=== PATIENT | female | born 1955 | race Caucasian/White ===

== ENCOUNTER 2020-09-14 05:44 | Day surgery (SDC) | payer OTHER ==
[2020-09-13 16:54] VITALS: BMI 26.5
[2020-09-14] MEDS ORDERED: LIDOCAINE HCL/PF 2% SDV 5ML VIAL ONE (07:43)
[2020-09-14] MEDS ORDERED: PROPOFOL 20 ML ONE ×3 (07:43)
[2020-09-14] MEDS ORDERED: MIDAZOLAM HCL 2 MG/2 ML SINGLE DOSE VIAL ONE (07:43)
[2020-09-14] MEDS ORDERED: SUCCINYLCHOLINE CHLORIDE 200 MG/10 ML SYRINGE ONE (07:43)
[2020-09-14] MEDS ORDERED: ceFAZolin SODIUM 1 GM VIAL ONE (07:43)
[2020-09-14] MEDS ORDERED: DEXAMETHASONE SOD PHOSPHATE 4 MG/1 ML VIAL ONE (07:44)
[2020-09-14] MEDS ORDERED: BUPIVACAINE HCL 100 ML ONE (07:44)
[2020-09-14] MEDS ORDERED: LIDOCAINE HCL 1%, 10 MG/ML (20ML VIAL) ONE (07:44)
[2020-09-14 12:38] VITALS: BP 145/77; PULSE 88; TEMP 97.4
== END 2020-09-14 12:39 | disposition home or self-care (01) ==
LOC: JASU-SURG 05:44
PROVIDERS: ATTEND Podiatrist
PROC: 0SRQ0JZ Replacement of Left Toe Phalangeal Joint with Synthetic Substitute, Open Approach (ICD-10-PCS; principal; 2020-09-14 08:00)
DX: M20.42 Other hammer toe(s) (acquired), left foot (principal)
CPT/HCPCS: 73630-TC-LT; 88304-TC; 88311-TC